=== PATIENT | male | born 1960 | race Caucasian/White ===

== ENCOUNTER → 2018-03-22 | Outpatient (CLI) | payer OTHER ==
[2015-09-04 11:00] VITALS: BP 124/79
[~2018-03-22] MED LIST: ACET325T16 PO; ATOR40TA59 PO; FURO40TA4 PO; LISI-130 PO; METF10007 PO; METO25TA4 PO; Warfarin Sodium MC
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
== END | disposition home or self-care (01) ==
LOC: RAD 12:56
PROVIDERS: ATTEND Internal Medicine
DX: S89.91XA Unspecified injury of right lower leg, initial encounter (principal); R60.0 Localized edema; V89.2XXA Person injured in unspecified motor-vehicle accident, traffic, initial encounter; Y93.89 Activity, other specified; Y92.89 Other specified places as the place of occurrence of the external cause; Y99.8 Other external cause status
CPT/HCPCS: 73562

== ENCOUNTER → 2018-12-02 | Outpatient (CLI) | payer OTHER ==
[2015-09-04 11:00] VITALS: BP 124/79
--- NOTE | 2018-12-02 16:50 | KCIC ---
CHEST PA LATERAL History: Hemoptysis. Past smoker. Labored breathing. Wheezing. Comparison: CT September 03, 2015. Chest x-ray September 03, 2015. Findings: Moderate hiatal hernia with gas noted on lateral view. Patchy bibasilar opacities, may represent atelectasis or consolidations. No pleural effusion. Normal heart size. Impression: 1. Patchy bibasilar opacities, may represent atelectasis or consolidations. 2. Moderate hiatal hernia. Electronically signed by: Gamal Staples DO (12/02/2018 4:48 PM) [id number]
== END | disposition home or self-care (01) ==
LOC: KCIC 14:21
PROVIDERS: ATTEND Internal Medicine
DX: R04.2 Hemoptysis (principal); K44.9 Diaphragmatic hernia without obstruction or gangrene; R91.8 Other nonspecific abnormal finding of lung field; Z87.891 Personal history of nicotine dependence
CPT/HCPCS: 71046

== ENCOUNTER → 2019-10-06 | Outpatient (CLI) | payer MEDICARE ==
[2019-06-14 16:33] VITALS: BP 144/88
[~2019-10-06] MED LIST changes: +ACET-2061 PO; -ACET325T16 PO; +AMIO200T4 PO; +APIX5TAB PO; +GABA600T7 PO; +MAGN400C PO; +MAGN400T44 PO; +MULT-690 PO; +PANT40TA77 PO; +POTA10TA12 PO
== END | disposition home or self-care (01) ==
LOC: LAB 10:24
PROVIDERS: ATTEND Internal Medicine Cardiovascular Disease
DX: Z11.59 Encounter for screening for other viral diseases (principal)
CPT/HCPCS: U0003-CS

== ENCOUNTER 2019-10-09 10:57 | Day surgery (SDC) | payer MEDICARE ==
[~2019-10-09 10:57] MED LIST changes: +BENZOCAINE ONE 20% MUCOSAL SPRAY. MM; +HYDROmorphone 2 MG/ML VIAL IV PRN; +IV RINGERS,LACTATED 1000ML 1,000 ML IV SCH; +LIDOCAINE 2% TOPICAL JELLY 30GM TUBE. TP ONE; +LIDOCAINE 2% VISCOUS 15 ML SOLUTION. SWSW ONE; +MORPHINE SULFATE 2 MG/ML VIAL. IV PRN; +ONDANSETRON PF 4 MG/2 ML VIAL. IV PRN; +PROCHLORPERAZINE 10 MG/2 ML VIAL. IV PRN; +fentaNYL PF VIAL 100 MCG/2 ML VIAL IV PRN
[2019-10-09] MEDS ORDERED: PROPOFOL 10 MG/ML (20ML) VIAL. IV ONE ×2 (11:35→12:00)
[2019-10-09] MEDS ORDERED: LIDOCAINE 2% PF 5 ML VIAL. ONE (11:35)
[2019-10-09] MEDS ORDERED: KETAMINE HCL IN NACL, ISO-OSM 50 MG/5 ML SYRINGE ONE (11:35)
[2019-10-09 12:11] LABS: BASO % 1 % (0-3); EOS # 0.1 x10^3/uL (0.0-0.7); EOS % 3 % (0-3); HEMATOCRIT 31.8 % (39.0-53.0); LYMPH # 0.7 x10^3/uL (1.0-4.8); LYMPH % 22 % (24-48); MEAN CORPUSCULAR HEMOGLOBIN 26 pg (25-35); MEAN CORPUSCULAR HGB CONC 32 g/dL (31-37); MEAN CORPUSCULAR VOLUME 81 fL (79-100); MONO # 0.4 x10^3/uL (0.0-1.1); MONO % 13 % (0-9); NEUT # 1.9 x10^3/uL (1.8-7.7); NEUT % 62 % (31-73); PLATELET COUNT 219 x10^3/uL (140-400); RED BLOOD COUNT 3.91 x10^6/uL (4.30-5.70); RED CELL DISTRIBUTION WIDTH 17.6 % (11.5-14.5); WHITE BLOOD COUNT 3.1 x10^3/uL (4.0-11.0)
[2019-10-09 12:27] LABS: CREATININE 1.3 mg/dL (0.7-1.3); GFR 56.5; POTASSIUM 4.6 mmol/L (3.5-5.1)
[2019-10-09 12:30] LABS: PROTHROMBIN TIME PATIENT 14.6 SEC (11.7-14.0)
[2019-10-09 12:33] LABS: ALBUMIN 3.9 g/dL (3.4-5.0); TOTAL BILIRUBIN 0.4 mg/dL (0.2-1.0)
--- NOTE | 2019-10-09 12:59 | EKG ---
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
[2019-10-09 13:22] VITALS: BP 142/72
--- NOTE | 2019-10-09 14:22 | CARD ---
MR#: [id number] Date of Study: 10/09/2019 Ordering Physician: SAMIR JIMENEZ, Referring Physician: SAMIR JIMENEZ, Tech: Kathy Olmstead RDCS APPROVED REPORT EXAM: Transesophageal echocardiogram with color flow Doppler and Synchronized Cardioversion. INDICATION Atrial Fibrillation Reason For Test : Rule out Intracardiac Thrombus. PROCEDURE After obtaining informed consent, patient underwent transesophageal echo in the PACU. Type of Sedation : General Anesthesia Sedation was administered by Dr. Jones [facility]. Sedation was achieved with Propofol 200 mg intravenously. Transesophageal probe was inserted and advanced into esophagus by Samir Jimenez MD. The RADHA was performed without complications. Synchronized Cardioversion attempted: Successful Synchronized Cardioversion acheived with 200 Joules after 1 attempt(s). Rhythm following Synchronized Cardioversion: Normal Sinus Rhythm Throughout the procedure, the blood pressure, pulse oximetry, cardiac rhythm, and rate were monitored . The patient tolerated the procedure without adverse effects. Recovery from general anesthesia was une ventful and vital signs were stable. LEFT VENTRICLE The left ventricle is normal size. There is normal left ventricular wall thickness. The left ventricu lar systolic function is normal and the ejection fraction is within normal range. The Ejection Fracti on is 60-65%. There is normal LV segmental wall motion. No left ventricle thrombus noted on this stud y. RIGHT VENTRICLE The right ventricle is normal size. There is normal right ventricular wall thickness. The right ventr icular systolic function is normal. ATRIA The left atrium size is normal. The right atrium size is normal. The interatrial septum is intact wit h no evidence for an atrial septal defect or patent foramen ovale as noted on 2-D or Doppler imaging. There is no thrombus noted in the left atrial appendage. AORTIC VALVE The aortic valve is normal in structure and function. Doppler and Color Flow revealed no significant aortic regurgitation. There is no aortic valvular vegetation. MITRAL VALVE The mitral valve is normal in structure and function. There is no evidence of mitral valve prolapse. Doppler and Color-flow revealed trace mitral regurgitation. TRICUSPID VALVE The tricuspid valve is normal in structure and function. Doppler and Color Flow revealed no tricuspid valve regurgitation noted. There is no tricuspid valve stenosis. PULMONIC VALVE The pulmonic valve is not well visualized. GREAT VESSELS The aortic root is normal in size. The IVC is normal in size and collapses >50% with inspiration. Critical Notification Critical Value: No <Conclusion> The left ventricular systolic function is normal and the ejection fraction is within normal range. The Ejection Fraction is 60-65%. There is normal LV segmental wall motion. There is no thrombus noted in the left atrial appendage. Successful CVN to SR. Signed by : Samir Jimenez, Electronically Approved : 10/09/2019 14:21:52
--- NOTE | 2019-10-10 15:04 | EKG ---
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
== END 2019-10-09 13:30 | disposition home or self-care (01) ==
LOC: SURG 10:57
PROVIDERS: ATTEND Internal Medicine Cardiovascular Disease
DX: I48.91 Unspecified atrial fibrillation (principal); Z79.899 Other long term (current) drug therapy
CPT/HCPCS: 36415; 80053; 82962; 85025; 85610; 93005; 93312; 93325; J2704; 92960

== ENCOUNTER 2019-11-24 09:10 | Emergency (ER) | payer MEDICARE ==
[~2019-11-24] VITALS: Ht 195.6 cm; Wt 155.0 kg
[~2019-11-24 09:10] MED LIST changes: -BENZOCAINE ONE 20% MUCOSAL SPRAY. MM; -HYDROmorphone 2 MG/ML VIAL IV PRN; -IV RINGERS,LACTATED 1000ML 1,000 ML IV SCH; -LIDOCAINE 2% TOPICAL JELLY 30GM TUBE. TP ONE; -LIDOCAINE 2% VISCOUS 15 ML SOLUTION. SWSW ONE; +MAGN400T5 PO; +METO50TA6 PO; -MORPHINE SULFATE 2 MG/ML VIAL. IV PRN; -ONDANSETRON PF 4 MG/2 ML VIAL. IV PRN; -PROCHLORPERAZINE 10 MG/2 ML VIAL. IV PRN; +SIMV20TA18 PO; -fentaNYL PF VIAL 100 MCG/2 ML VIAL IV PRN
[2019-11-24] MEDS ORDERED: LIDOCAINE 2%/EPI 1:100,000 20 ML VIAL. INJ ONE (10:30)
[2019-11-24] MEDS ORDERED: NEOMY/BACITR/POLYMYXIN OINT PACKET. TP ONE (10:30)
--- NOTE | 2019-11-24 10:52 | PHYS DOC ---
Past Medical History Past Medical History: A-Fib, Cancer, COPD, Diabetes-Type II, DVT, High Ch olesterol, Hypertension Additional Past Medical Histor: PE, BLADDER CA Past Surgical History: Other Additional Past Surgical Histo: Vein stripping in left leg, cardiac sx, CARDIAC ABLATION FOR HX A-FIB Smoking Status: Former Smoker Alcohol Use: Heavy Drug Use: None General Adult EDM: Chief Complaint: LACERATION/AVULSION HPI: HPI: Patient is a 59-year-old male presenting to the ED with a left foot laceration for which he sustained this morning after a fall. Patient has a past medical history type 2 diabetes, diabetic neuropathy, venous insufficiency, arterial insufficiency in his lower extremities. Patient is on Eliquis for a routine C deficiency and has been on blood thinner since his 20s. Patient states he did not lose consciousness and remembers the fall in its entirety. Patient states he fell due to weakness in his legs and his neuropathy. Patient was recently discharged from this hospital after being referred by his primary care physician for hyponatremia. Patient denies any new motor weakness or sensory loss in the affected limb. Patient did not take his Eliquis this morning. Review of Systems: Review of Systems: Constitutional: Denies fever or chills Eyes: Denies redness or eye pain HENT: Denies nasal congestion or sore throat Respiratory: Denies cough or shortness of breath Cardiovascular: Denies chest pain or palpitations GI: Denies abdominal pain, nausea, or vomiting : Denies dysuria or hematuria Musculoskeletal: Denies back pain or joint pain Integument: Denies new rash or skin lesions Neurologic: Denies headache or new focal weakness or sensory changes Complete systems were reviewed and found to be within normal limits, except as documented in this note. Current Medications: Current Medications Medications (Trade) Dose Ordered Sig/Av Start Time Stop Time Status Last Admin Dose Admin Lidocaine/ Epinephrine (LIDOCAINE 2%-EPI 1:100,000 multi-dose) 20 ml 1X ONCE 11/24/19 10:30 11/24/19 10:39 DC Neomycin/ Polymyxin/ Bacitracin (Triple Antibiotic Ointment) 1 pkt 1X ONCE 11/24/19 10:30 11/24/19 10:39 DC Allergies: Allergies: Allergies Coded Allergies Type Severity Reaction Last Updated Verified No Known Drug Allergies 09/03/15 No Physical Exam: PE: Constitutional: Well developed, well nourished, no acute distress, non-toxic appearance HENT: Normocephalic, atraumatic Eyes: PERRL, EOMI, no discharge, left conjunctiva is erythematous Neck: Normal range of motion, no tenderness, supple Lungs & Thorax: Bilateral breath sounds clear to auscultation, no wheezing Abdomen: Soft, no tenderness Skin: Warm, dry, grossly erythematous with signs of chronic venous insufficiency seen in lower extremities bilaterally Back: No tenderness, no CVA tenderness Extremities: Lower extremities show marked sensory loss, left fourth and fifth digit each show a 2 cm laceration on the volar surfaces, wounds are still bleeding Neurologic: Alert and oriented X 3, lower extremity muscle strength is plus 4 out of 5 bilaterally, marked sensory loss in the lower extremities, no focal deficits noted Psychologic: Affect normal, judgment normal, cooperative Radiology/Procedures: Radiology/Procedures: PROCEDURE: FOOT RIGHT 3V FOOT RIGHT 3V 11/24/2019 10:46 AM INDICATION: Pain, laceration status post trauma COMPARISON: None available. TECHNIQUE: 3 views of the left fourth and fifth digits are provided. FINDINGS/ IMPRESSION: There is a transversely oriented fracture involving the base of the proximal phalanx of the fifth digit with adjacent soft tissue defect. There is possible intra-articular extension to the metatarsophalangeal joint. Soft tissue swelling is present. Correlate with physical examination assess for open fracture given adjacent soft tissue irregularity. Electronically signed by: Ciarra Reyes MD (11/24/2019 11:53 AM) [id number] Course & Med Decision Making: Course & Med Decision Making Pertinent Imaging studies reviewed. (See chart for details) Patient is a 59-year-old male presenting to the ED with a 2 inch laceration on the volar surface of the fourth and fifth digit on his left foot for which he sustained during a fall last night. Patient has a history of diabetic neuropathy, chronic venous insufficiency, and arterial insufficiency which is consistent with physical exam findings. Patient states that he has a protein C deficiency and has been on blood thinners since his 20s and is currently on Eliquis for which he did not take his dose this morning due to foot injury. Foot x-ray showed transversely oriented fracture involving the base of the proximal phalanx of the fifth digit. 1 cm laceration extending into the interdi git space on both fourth and fifth left digits. Laceration repair was performed, see note for details. Patient was sent home with Keflex 500 mg p.o. 4 times daily for 7 days. Patient was counseled on importance of being wound clean and following up with his personal wound care physician. Patient stable for discharge with outpatient follow-up with PCP. Discussed findings and plan with patient, who acknowledges understanding and agreement. Dragon Disclaimer: Dragon Disclaimer: This electronic medical record was generated, in whole or in part, using a voice recognition dictation system. Laceration/Wound Repair Laceration/Wound Repair #1: Wound Location: lower extremity Wound Length (cm): 2 Wound Explored: clean Betadine Prep?: No Anesthesia: Lidocaine w/ Epi Volume Anesthetic (ccs): 0 Wound Debrided: minimal Wound Repaired With: sutures Suture Size/Type: 5:0 Number of Sutures: 9 Layer Closure?: No Sterile Dressing Applied?: Yes Splint Applied?: No Sling Applied?: No Laceration/Wound Repair #2: Wound Location: lower extremity Wound Length (cm): 2 Wound Explored: clean Betadine Prep?: No Anesthesia: Lidocaine w/ Epi Volume Anesthetic (ccs): 0 Wound Debrided: minimal Wound Repaired With: sutures Suture Size/Type: 5:0 Number of Sutures: 7 Layer Closure?: No Sterile Dressing Applied?: Yes Splint Applied?: No Sling Applied?: No Progress Verbal consent obtained. Time out performed. Hand hygiene utilized. Wound cleaned with ChloraPrep. Anesthesia obtained via a 25-gauge hypodermic needle with (1) mL's of lidocaine 2% with epinephrine. Copious irrigation performed. Wound well approximated with sutures. Patient tolerated procedure well and wit hout difficulty. Empiric antibiotic ointment applied prior to sterile dressing. Departure Departure Impression: Primary Impression: Toe fracture, left Qualified Codes: S92.515B - Nondisplaced fracture of proximal phalanx of left lesser toe(s), initial encounter for open fracture Additional Impression: Laceration Disposition: 01 HOME, SELF-CARE Condition: STABLE Referrals: TUAN DAVE MD (PCP) BATOOL LI DPM Patient Instructions: Hard-Soled Shoe, Laceration Care, Adult, [id number], Toe Fracture, [id number] Additional Instructions: Do not soak your wound. You may shower. Clean wound daily with soap and water. Change dressing 2 times daily. Use over the counter antibiotic ointment with each dressing change. Sutures need to be removed in 10 days. Present to your family doctor or local urgent care for removal. You may also present to the ED but it will be an additional visit/charge. Scripts Cephalexin (KEFLEX) 500 Mg Capsule 500 MG PO QID for 7 Days, #28 CAP Prov: ISHA TOPETE DO 11/24/19 Justicifation of Admission Dx: Justifications for Admission: Justification of Admission Dx: N/A ISHA TOPETE DO Nov 24, 2019 10:52
[2019-11-24] MEDS ORDERED: DIPH,PERTUSS(ACELL),TET VAC/PF 0.5 ML SYRINGE. VAX IM ONE ×2 (11:36→12:00)
--- NOTE | 2019-11-24 11:56 | RAD ---
FOOT RIGHT 3V 11/24/2019 10:46 AM INDICATION: Pain, laceration status post trauma COMPARISON: None available. TECHNIQUE: 3 views of the left fourth and fifth digits are provided. FINDINGS/ IMPRESSION: There is a transversely oriented fracture involving the base of the proximal phalanx of the fifth digit with adjacent soft tissue defect. There is possible intra-articular extension to the metatarsophalangeal joint. Soft tissue swelling is present. Correlate with physical examination assess for open fracture given adjacent soft tissue irregularity. Electronically signed by: Ciarra Reyes MD (11/24/2019 11:53 AM) [id number]
[2019-11-24] MEDS ORDERED: CEPHALEXIN 250 MG CAPSULE. PO ONE (12:30)
[2019-11-24 12:43] LABS: BASO # 0.1 x10^3/uL (0.0-0.2); BASO % 1 % (0-3); EOS # 0.1 x10^3/uL (0.0-0.7); EOS % 2 % (0-3); HEMATOCRIT 26.6 % (39.0-53.0); HEMOGLOBIN 8.5 g/dL (13.0-17.5); LYMPH % 22 % (24-48); MEAN CORPUSCULAR HEMOGLOBIN 25 pg (25-35); MEAN CORPUSCULAR HGB CONC 32 g/dL (31-37); MEAN CORPUSCULAR VOLUME 79 fL (79-100); MONO # 0.7 x10^3/uL (0.0-1.1); MONO % 16 % (0-9); NEUT # 2.5 x10^3/uL (1.8-7.7); NEUT % 59 % (31-73); PLATELET COUNT 314 x10^3/uL (140-400); RED BLOOD COUNT 3.38 x10^6/uL (4.30-5.70); RED CELL DISTRIBUTION WIDTH 17.8 % (11.5-14.5); WHITE BLOOD COUNT 4.3 x10^3/uL (4.0-11.0)
[2019-11-24 12:51] LABS: CALCIUM 9.3 mg/dL (8.5-10.1); CREATININE 1.5 mg/dL (0.7-1.3); GFR 47.9; MAGNESIUM 2.4 mg/dL (1.8-2.4); POTASSIUM 5.2 mmol/L (3.5-5.1)
[2019-11-24] MEDS ORDERED: CEPH-264 PO (13:45)
[2019-11-24 14:17] VITALS: BP 155/77
== END 2019-11-24 14:21 | disposition home or self-care (01) ==
LOC: ER 09:10
DX: S92.515B Nondisplaced fracture of proximal phalanx of left lesser toe(s), initial encounter for open fracture (principal); R53.1 Weakness; I48.91 Unspecified atrial fibrillation; J44.9 Chronic obstructive pulmonary disease, unspecified; E11.9 Type 2 diabetes mellitus without complications; E78.00 Pure hypercholesterolemia, unspecified; I10 Essential (primary) hypertension; F10.10 Alcohol abuse, uncomplicated; Z86.718 Personal history of other venous thrombosis and embolism; Z98.890 Other specified postprocedural states; Z87.891 Personal history of nicotine dependence; W18.39XA Other fall on same level, initial encounter; Y93.89 Activity, other specified; Y92.89 Other specified places as the place of occurrence of the external cause; Y99.8 Other external cause status
CPT/HCPCS: 29515; 36415; 73630; 80048; 83735; 85025; 90471; 90715; 99284; J3490; 12002

== ENCOUNTER → 2019-12-18 | Outpatient (CLI) | payer MEDICARE ==
[2019-11-24 14:17] VITALS: BP 155/77
[~2019-12-18] MED LIST changes: +CEPH-264 PO
--- NOTE | 2019-12-18 08:45 | RAD ---
ABDOMEN COMPLETE History: Chronic kidney disease Comparison: None. Findings: Multiple sonographic images of the abdomen are submitted. Pancreas is not well visualized due to bowel gas. Inferior vena cava and abdominal aorta are also poorly seen due to bowel gas, distal abdominal aorta estimated about 1.9 cm. Right kidney measured 12.5 x 5.4 x 6.3 cm, no hydronephrosis. Left kidney measured 13.1 x 5 x 5.6 m, no hydronephrosis. No focal hepatic lesion is demonstrated. Right lobe of the liver measured 17.2 cm longitudinal. Gallbladder is distended without demonstrable intraluminal abnormality, wall thickening, or pericholecystic fluid. Spleen measured 11.8 cm, some granulomas present. Impression: 1. Gallbladder appears distended although no demonstrable intraluminal abnormality. 2. Midline structures are poorly seen due to bowel gas. 3. There is no hydronephrosis of either kidney. Electronically signed by: Maldonado Barton MD (12/18/2019 8:43 AM) [id number]
== END | disposition home or self-care (01) ==
LOC: US 06:41
PROVIDERS: ATTEND Internal Medicine
DX: N18.3 Chronic kidney disease, stage 3 (moderate) (principal)
CPT/HCPCS: 76700

== ENCOUNTER → 2019-12-25 | Outpatient (CLI) | payer MEDICARE ==
[~2019-12-25] MED LIST changes: +ACET325T21 PO; +AMIT25TA PO; +GABA600T91 PO
== END | disposition home or self-care (01) ==
LOC: LAB 13:00
PROVIDERS: ATTEND Internal Medicine Cardiovascular Disease
DX: Z01.812 Encounter for preprocedural laboratory examination (principal); I50.9 Heart failure, unspecified; Z20.828 Contact with and (suspected) exposure to other viral communicable diseases
CPT/HCPCS: U0003-CS